=== PATIENT | female | born 1955 | race Caucasian/White ===

== ENCOUNTER 2018-09-22 10:02 | Day surgery (SDC) | payer BC ==
[2018-09-17 17:08] VITALS: BMI 27.1
[~2018-09-22 10:02] MED LIST: DEXAMETHASONE SOD PHOSPHATE 10 MG/ML 1 ML VIAL IV ONE; LACTATED RINGERS 1,000 ML IV SCH; LIDOCAINE 1% 20 ML VIAL (10MG/ML) FOR IV START INTRADERMA PRN; MIDAZOLAM 2 MG/2 ML VIAL IV PRN; ONDANSETRON 4 MG/2 ML VIAL IVP ONE; SCOPOLAMINE 1.5MG/72HR PATCH TRANSDERM ONE; ceFAZolin IN SWFI 2 GM/20 ML SYRINGE IVP ONE
[2018-09-22] MEDS ORDERED: PROPOFOL 10 MG/ML 20 ML VIAL IV ONE (11:31)
[2018-09-22] MEDS ORDERED: LIDOCAINE 1% INJ 10MG/ML (20 ML MDV) ONE (11:31)
[2018-09-22] MEDS ORDERED: NEOSTIGMINE 1 MG/ML 10 ML VIAL ONE (11:31)
[2018-09-22] MEDS ORDERED: MIDAZOLAM 2 MG/2 ML VIAL ONE (11:31)
[2018-09-22] MEDS ORDERED: PHENYLEPHRINE-0.9% NACL SYG 1 MG/10 ML SYRINGE ONE (11:31)
[2018-09-22] MEDS ORDERED: GLYCOPYRROLATE 0.2 MG/ML 2 ML VIAL ONE (11:31)
[2018-09-22] MEDS ORDERED: ROCURONIUM BROMIDE 10 MG/ML 10 ML VIAL IV ONE (11:31)
[2018-09-22] MEDS ORDERED: fentaNYL (PF) 50 MCG/ML 2 ML AMP ONE (11:31)
[2018-09-22 13:13] VITALS: TEMP 96.8
[2018-09-22] MEDS: HYDROmorphone 0.5 MG/0.5 ML SYRINGE IVP PRN ×2 (13:47→13:55)
[2018-09-22 14:00] VITALS: RESP 16
[2018-09-22] MEDS ORDERED: HYDROcodone/APAP 7.5-325MG 1 EACH TAB PO ONE (14:30)
[2018-09-22 14:57] VITALS: BP 119/74; PULSE 85
--- NOTE | 2018-09-22 17:04 | OP ---
OPERATIVE REPORT DATE OF SURGERY: 09/22/2018. SURGEON: Dr. Mani Jacobs PREOPERATIVE DIAGNOSES: 1. Deflation of right breast implant. 2. Personal history of breast cancer. 3. Acquired deformity, right reconstructed breast. POSTOPERATIVE DIAGNOSES: 1. Deflation of right breast implant. 2. Personal history of breast cancer. 3. Acquired deformity, right reconstructed breast. OPERATIVE PROCEDURE: 1. Exploration of right reconstructed breast with replacement of breast implant for delayed breast reconstruction. 2. Implantation of reconstructive graft for right breast reconstruction. OPERATIVE INDICATIONS: The patient is a 62-year-old female who has undergone a right mastectomy for treatment of breast cancer in 2006 with immediate reconstruction via tissue expanders technique and subsequent outpatient expansion followed by placement of a saline breast implant. The patient after completing the process did well and was not seen until approximately a month ago, when the patient reported a decreasing size of her right reconstructed breast that had been noticed for a few weeks. Examination clearly demonstrated deflated right breast implant. There had been no history of trauma. No inflammatory changes present. She was scheduled for today's surgery. The patient's reconstructed right breast had developed new deformities due to the deflation with irregularities and contour defects. She understands her potential risks and complications of today's surgery and that she may require subsequent surgery to obtain final result. She has requested that I perform the surgery. OPERATIVE PROCEDURE SUMMARY: The patient was seen in the preoperative area. Markings were made and procedure reviewed. All questions were answered. She was transported to the operating room, where she was placed in supine position. Following induction of general endotracheal anesthesia, the patient was prepped and draped in usual fashion. The transverse diagram was drawn for incision over the right breast following placement of prior scar. Incision was then made with a 10 blade scalpel, dividing the skin in full- thickness fashion followed by cauterization to divide subcutaneous tissue and then elevate skin and subcutaneous tissue flaps off the underlying muscle flap layer. Extensive dissection was required to release contour irregularities. Once this was completed, the transverse incision was made through the muscle flap layer, exposing the breast implant. It was removed intact. The implant was deflated. The implant was discarded. Irrigation was performed. The cavity appeared normal with no granulation tissue or exudates, but serous fluid was present. After completing irrigation, a complete capsulotomy incision was made where the capsule joined the chest wall and then multiple cruciate incisions through the capsular structure to release this structure in areas where tightness was present to create more even contours. Hemostasis was maintained with cautery. Additional irrigation was performed. Gloves were changed. Temporary breast implant sizers were opened on the field. Ultimately, a 600 mL sizer appeared best with the seated up position. The patient was returned to supine position, temporary breast implant sizer removed, gloves changed, additional irrigation performed. Breast implant was opened on the field from the [employer], reference #[id number] , serial #[id number]. The device was only handled by the surgeon. It was irrigated with saline and inserted in the reconstructive cavity. Unfortunately the muscle flap layer could not be directly reapproximated over the implant without disrupting the shape of the implant. Therefore [employer]urg[employer] reconstructive graft was opened on the field. The graft measured 10 x 15 cm and was fenestrated. The graft was revitalized at room-temperature saline. Once ready, the entire piece of graft was used to assist with breast reconstruction, placed in a modified inferior sling technique and secured to the muscle flap tissue, in-setting the graft to the muscle flap tissue. The graft was placed directly over the implant and then the muscle flap tissue advanced over the graft and then inset. This inset was performed with interrupted 3-0 Vicryl. Complete coverage was now obtained. Irrigation was performed. Hemostasis was excellent. The skin incision was closed in 2 layers approximating the deep dermis using inverted interrupted 4-0 Monocryl followed by closure of the superficial dermis and epidermis with running 5-0 Prolene. Surgical field was cleansed with saline. Dry postoperative bandage was placed using one-inch sterile paper tape, Kerlix squares and then positioned in a size 4 mammary support. The patient was awakened from her anesthetic, extubated and transferred to the recovery room in good condition with stable vital signs. Estimated blood loss was 25 mL. There were no complications. MMODL / IJN: [id number] / [id number]
== END 2018-09-22 15:14 | disposition home or self-care (01) ==
LOC: OR 10:02
PROVIDERS: ATTEND Plastic Surgery
DX: T85.49XA Other mechanical complication of breast prosthesis and implant, initial encounter (principal); N65.0 Deformity of reconstructed breast; K21.9 Gastro-esophageal reflux disease without esophagitis; Z90.11 Acquired absence of right breast and nipple; Z85.3 Personal history of malignant neoplasm of breast; Z87.39 Personal history of other diseases of the musculoskeletal system and connective tissue; Z80.3 Family history of malignant neoplasm of breast; Z79.899 Other long term (current) drug therapy
CPT/HCPCS: 19340; 19328; C1789; C1763; J1170; J0690